=== PATIENT | male | born 1960 | race Caucasian/White ===

== ENCOUNTER 2020-05-27 14:47 | Emergency (ER) | payer OTHER, MEDICAID, SELFPAY ==
[~2020-05-27] VITALS: Ht 177.8 cm; Wt 63.5 kg
[2020-05-27 14:55] VITALS: BP_SYST 136
--- NOTE | 2020-05-27 14:55 | NUR ---
Patient to ER bed 4 to gown for evaluation. Side rails up. Report given to MELINA Perez.
--- NOTE | 2020-05-27 15:02 | NUR ---
Pt was brought in from [facility] for medical clearance to go to [facility]. Pt has no complaints at this time. Pt has bizzare behavior. Pending MD Bang pedro.
--- NOTE | 2020-05-27 15:05 | NUR ---
ER Dr. Cuenca at bedside examining patient.
[2020-05-27 15:39] LABS: BASOPHILS % (AUTO) 0.9 % (0.0-2.0); EOSINOPHILS # (AUTO) 0.1 K/uL (0.0-0.4); EOSINOPHILS % (AUTO) 2.6 % (0.0-4.0); HEMATOCRIT 38.6 % (36-54); HEMOGLOBIN 13.5 g/dL (14.0-18.0); LYMPHOCYTES # (AUTO) 1.6 K/uL (1.0-5.5); LYMPHOCYTES % (AUTO) 32.1 % (20.5-51.5); MEAN CORPUSCULAR HEMOGLOBIN 34 pg (27-31); MEAN CORPUSCULAR HGB CONC 35 % (32-36); MEAN CORPUSCULAR VOLUME 97 fL (79.0-98.0); MONOCYTES # (AUTO) 0.4 K/uL (0.0-1.0); MONOCYTES % (AUTO) 8.2 % (1.7-9.3); NEUTROPHILS # (AUTO) 2.9 K/uL (1.8-7.7); NEUTROPHILS % (AUTO) 56.2 % (40.0-70.0); PLATELET COUNT (AUTO) 165 K/uL (130-430); RED BLOOD CELL COUNT(AUTO) 3.97 MIL/uL (4.2-6.2); RED CELL DISTRIBUTION WIDTH 13.8 % (9.0-15.0); WHITE BLOOD COUNT (AUTO) 5.1 K/uL (4.8-10.8)
[2020-05-27 15:50] LABS: ANION GAP 6 (5-15); CALCIUM 9.1 mg/dL (8.4-11.0); CHLORIDE 105 mmol/L (98-107); CREATININE 1.55 mg/dL (0.55-1.30); GLUCOSE 84 mg/dL (70-99); POTASSIUM 4.6 mmol/L (3.5-5.1); SODIUM SERUM 143 mmol/L (136-145); UREA NITROGEN, BLOOD 12 mg/dL (8-21)
[2020-05-27 15:53] LABS: GFR AFRICAN AMERICAN 60 mL/min (>90)
[2020-05-27 15:56] LABS: ALANINE AMINOTRANSFERASE 16 U/L (12-78); ALBUMIN 3.6 g/dL (3.4-4.8); ASPARTATE AMINOTRANSFERASE 17 U/L (10-37); TOTAL BILIRUBIN 0.5 mg/dL (0.0-1.0)
--- NOTE | 2020-05-27 15:56 | NUR ---
Pt unable to produce urine. Attempted to straight cath patient with no success. Gave patient water.
[2020-05-27 16:02] LABS: ACETAMINOPHEN < 1 ug/mL (1-30)
[2020-05-27 16:03] LABS: ALCOHOL, BLOOD < 3 mg/dL (<10)
--- NOTE | 2020-05-27 16:15 | NUR ---
Collected urine. Sent to the lab.
[2020-05-27 16:20] LABS: CHOLESTEROL 199 mg/dL (<200); TRIGLYCERIDES 86 mg/dL (30-150)
[2020-05-27 16:21] LABS: HDL CHOLESTEROL 85 mg/dL (>45); LDL CHOLESTEROL 108 mg/dL (<100)
[2020-05-27 16:43] LABS: BILIRUBIN,URINE NEGATIVE (NEGATIVE); COLOR,URINE YELLOW (YELLOW); GLUCOSE,URINE NEGATIVE (NEGATIVE); KETONES,URINE NEGATIVE (NEGATIVE); LEUKOCYTE ESTERASE ,URINE 1+ (NEGATIVE); NITRITE, URINE NEGATIVE (NEGATIVE); PROTEIN URINE NEGATIVE (NEGATIVE); UROBILINOGEN,URINE 0.2 (0.2-1.0)
[2020-05-27 16:47] LABS: BLOOD, URINE TRACE (NEGATIVE); CLARITY/URINE SLIGHTLY HAZY (CLEAR)
[2020-05-27 17:01] LABS: BACTERIA,URINE MODERATE /HPF (None Seen); MUCUS,URINE None Seen /LPF (None Seen); RBC,URINE 0-3 /HPF (0-3); URINE AMORPHOUS PHOSPHATES 2+ /HPF (None Seen)
--- NOTE | 2020-05-27 17:02 | NUR ---
No acute changes from baseline. Pt resting in bed. Not in any distress. Chest equal rise and fall, respirations unlabored. In stable condition. Pending MD dispo.
[2020-05-27 17:03] LABS: BARBITURATE, URINE NEGATIVE (NEG <=200); BENZODIAZEPINE, URINE NEGATIVE (NEG <=150); CANNABINOID, URINE NEGATIVE (NEG <=50); COCAINE, URINE NEGATIVE (NEG <=150); METHAMPHETAMINES SCREEN,URINE NEGATIVE (NEG <=500); OPIATE, URINE NEGATIVE (NEG <=100); PHENCYCLIDINE SCREEN,URINE NEGATIVE (NEG <=25); UR TRICYCLIC ANTIDEPRESSANTS NEGATIVE (NEG <=300); URINE AMPHETAMINE NEGATIVE (NEG <=500); URINE METHADONE NEGATIVE (NEG <=200); URINE OXYCODONE SCREEN NEGATIVE (NEG <=100); URINE PROPOXYPHENE SCREEN NEGATIVE (NEG <=300)
[2020-05-27] MEDS ORDERED: CIPR-211 PO (17:10)
[2020-05-27] MEDS ORDERED: CIPROFLOXACIN HCL 500 MG TABLET PO ONE (17:15)
--- NOTE | 2020-05-27 17:56 | NUR ---
Gave report to Caterina in [facility].
--- NOTE | 2020-05-27 18:00 | NUR ---
Patient given written and verbal discharge instructions and verbalizes understanding. ER MD discussed with patient the results and treatment provided. Patient in stable condition. ID arm band removed. Patient educated on pain management and to follow up with PMD. Pain Scale 0/10. Opportunity for questions provided and answered. Medication side effect fact sheet provided.
[2020-05-27 18:01] VITALS: BP_SYST 122
== END 2020-05-27 18:00 ==
LOC: SED 14:47
DX: R45.6 Violent behavior (principal); N39.0 Urinary tract infection, site not specified; Z20.822 Contact with and (suspected) exposure to COVID-19
CPT/HCPCS: 36415; 80053; 80061; 80307; 81000; 83036; 85025; 87081; 87086; 87426; 99283; G0480; G0481; G0482